=== PATIENT | female | born 1960 | race Caucasian/White ===

== ENCOUNTER 2023-11-11 10:42 | Emergency (ER) | payer OTHER, SELFPAY ==
[2023-11-11 10:49] VITALS: BP 135/79
[2023-11-11] MEDS: TORADOL 30 MG IM (11:00)
[2023-11-11 11:14] LABS: Urine Albumin 2+ (Neg - Trace); Urine Bilirubin Negative (Negative); Urine Character Very Cloudy (Clear); Urine Color Yellow; Urine Glucose Negative (Negative); Urine Ketone Negative (Negative); Urine Leukocyte 2+ (Negative); Urine Nitrite Positive (Negative); Urine Occult Blood 4+ (Negative); Urine Urobilinogen Negative (Neg - 1+)
[2023-11-11 11:28] LABS: Urine White Cell >100 /HPF (0-5)
[2023-11-11] MEDS: NSS 1000 IV (12:34)
[2023-11-11 12:44] LABS: % Basophils 0.2 % (0-2); % Eosinophils 0.3 % (0-6); % Immature Granulocytes 0.3 % (0-0.5); % Lymphocytes 12.9 % (20.5-51.1); % Neutrophils 78.3 % (42.2-75.2); Absolute Lymphocytes 1.4 10^3/uL (1.2-3.4); Absolute Monocytes 0.9 10^3/uL (0.1-0.6); Absolute Neutrophils 8.7 10^3/uL (1.4-6.5); Hematocrit 41.1 % (37.0-47.0); Hemoglobin 14.9 g/dL (12.0-16.0); Mean Corp Hgb Conc. 36.3 g/dL (33.0-37.0); Mean Corpuscular Hgb 34.9 pg (27.0-31.0); Mean Corpuscular Volume 96.3 fL (81.0-99.0); Mean Platelet Volume 9.4 fL (7.4-10.4); Nucleated Red Blood Cells % 0 %; Platelet Count 317 10^3/uL (130-400); Red Blood Cell Count 4.27 10^6/uL (4.20-5.40); Red Cell Dist. Width 11.9 % (11.5-14.5); White Blood Cell Count 11.1 10^3/uL (4.8-10.8)
[2023-11-11 13:01] LABS: ALT (SGPT) 20 U/L (0-35); AST (SGOT) 22 U/L (14-36); Albumin 4.2 g/dl (3.5-5.0); Alkaline Phosphatase 81 U/L (38-126); Blood Urea Nitrogen 11 mg/dl (7-17); Calcium 9.8 mg/dl (8.4-10.2); Carbon Dioxide 27 mmol/L (22-30); Chloride 99 mmol/L (98-107); Glucose 107 mg/dl (70-99); Potassium 4.2 mmol/L (3.5-5.1); Sodium 136 mmol/L (135-145); Total Bilirubin 0.9 mg/dl (0.2-1.3); Total Protein 7.2 g/dl (6.3-8.2); eGFR > 60.00
--- NOTE | 2023-11-11 13:16 | ED.GENMED ---
Addendum entered and electronically signed by Unique Means PA-C 11/14/23 07:37:
sensitive to cefazolin
no treatment change required.
Addendum entered and electronically signed by Unique Means PA-C 11/13/23 10:51:
e coli presumptive culture; on keflex; await sensitivies; ct showed findings asssociated with recently passed stone.
Original Note:
History of Present Illness
General
Chief Complaint: Flank Pain
Source: patient and family
Exam Limitations: none
Time Seen by Provider: 11/11/23 12:18
Nursing documentation reviewed up to this point in time: agreed with
Travel History
Have you had any contact with someone who has COVID-19?: No
Do you have any symptoms of coronavirus? Fever > 100 degrees, chills, cough, shortness of breath, sore throat, loss of taste or smell, muscle aches, or headache?: No
History of Present Illness
History of Present Illness:
63-year-old female with history of HTN is here for right flank plain she states started 2 days ago. She's had chills but no fever. She was nauseous and vomited once this a.m. during 07/15 pain episode. Denies abdominal pain. Pt given IM Toradol in
Triage and state pain is now 2/10. Saw PCP Dr. Chaudhari and sent here for evaluation.
Past History
Past History
ED Past Medical History: HTN
ED Past Surgical History: Orthopedic
Social History
Tobacco: Non-smoker
Alcohol: None
Personal: Single
Living: with family
Review of Systems
Review of Systems
Allergies reviewed?: Yes
All Other Systems: ROS reviewed and negative except as documented in HPI and ROS
Constitutional: Reports chills; Denies fever
Respiratory: Denies trouble breathing
Cardiac: Denies chest pain
ABD/GI: Reports nausea and vomiting; Denies abdominal pain or diarrhea
: Reports dysuria and flank pain; Denies frequency or difficulty voiding
Skin: Reports no symptoms
Neurological: Reports no symptoms
Phy Exam
Physical Exam
Physical Exam:
GENERAL: No acute distress. A&Ox3.
CONSTITUTIONAL: Afebrile.
EYES: PERRL, conjunctivae normal
ENMT: moist mucus membranes,
RESPIRATORY: Regular respirations, nonlabored, lungs clear.
CARDIOVASCULAR: Regular rate and rhythm, no murmurs, no rubs.
GI: Soft, nontender, normal BS. No flank tenderness at this time
MUSCULOSKELETAL: Moves with ease. Well perfused.
SKIN: Warm, dry, pink
PSYCH: Normal mood and affect. Well kept, interactive and appropriate
NEUROLOGIC: Awake, alert and oriented. No focal neurological deficits
Course
Orders/Labs/Results
Orders:
Orders
11/11/23 10:58
Ketorolac [Toradol] 30 mg .ROUTE .STK-MED ONE
11/11/23 11:00
Ketorolac [Toradol] 30 mg IM NOW STA
11/11/23 11:04
Urinalysis Reflex To Culture Urgent
Date Specimen was Collected: 11/11/23
Time Specimen was Collected: 10:55
Urine Microscopic Reflex Cult Urgent
Urine Culture Urgent
PARKER Source: U
Specimen Description:
Date Specimen was Collected: 11/11/23
Time Specimen was Collected: 10:55
11/11/23 12:19
IV Insert/Care/Rem.- Treatment PRN
0.9% Sodium Chloride 1000 ml [Nss] 1,000 ml IV BOLUS
11/11/23 12:25
CT Abd/pel Without Iv Or Oral Urgent
Comment:
Reason For Exam: R flank pain, hematuria
11/11/23 12:35
Complete Blood Count/With Diff Urgent
Comprehensive Metabolic Panel Urgent
11/11/23 15:27
CefTRIAXone [Rocephin] 1,000 mg IV NOW STA
Abnormal Lab Results
11/11/23 11/11/23
11:04 12:35
WBC 11.1 H 10^3/uL
(4.8-10.8)
MCH 34.9 H pg
(27.0-31.0)
Absolute Neuts (auto) 8.7 H 10^3/uL
(1.4-6.5)
Absolute Monos (auto) 0.9 H 10^3/uL
(0.1-0.6)
Neutrophils % 78.3 H %
(42.2-75.2)
Lymphocytes % 12.9 L %
(20.5-51.1)
Glucose 107 H mg/dl
(70-99)
Ur Occult Blood Reflex 4+ A
(Negative)
Urine Nitrite (Reflex) Positive A
(Negative)
Leukocyte Esterase Rfl 2+ A
(Negative)
Urine WBC (Reflex) >100 A /HPF
(0-5)
Urine Albumin (Reflex) 2+ A
(Neg - Trace)
11/11/23 12:35
11/11/23 12:35
Vital Signs
Initial and Last Documented VS:
Initial Vital Signs
Temp Pulse Resp BP Pulse Ox
98.5 F 90 20 135/79 98
11/11/23 10:49 11/11/23 10:49 11/11/23 10:49 11/11/23 10:49 11/11/23 10:49
Last Documented Vital Signs
Temp Pulse Resp BP Pulse Ox
98.5 F 82 17 122/70 97
11/11/23 10:49 11/11/23 15:03 11/11/23 15:03 11/11/23 15:03 11/11/23 15:03
MDM/Problems Addressed
Differential Diagnosis Includes:
UTI, Pyelonephritis, kidney stone
MDM/Problems Addressed:
63-year-old female with history of HTN is here for right flank plain she states started 2 days ago. She's had chills but no fever. She was nauseous and vomited once this a.m. during 07/15 pain episode. Denies abdominal pain. Pt given IM Toradol in
Triage and state pain is now 11/15. Saw PCP Dr. Chaudhari and sent here for evaluation.
Afebrile
11/11/2023 1320 PM
CBC, CMP with no clinically significant abnormality.
UA: 4+ occult blood, positive nitrites, positive leukocytes, greater than [address] WBCs
Patient is awaiting CT scan to rule out kidney stone/pyelonephritis
11/11/[address] abdomen pelvis without IV or p.o. contrast, radiology report read: IMPRESSION:
1.� Mild diffuse right hydroureter without urinary calculi identified. Findings could reflect recently passed stone.�
2. Normal appendix.
Patient has been pain-free since initial exam, most likely passed a stone.
UTI: infected. Rocephin IV given.
Rx for Keflex 500 mg BID x 10 days sent to her pharmacy
Explained results and all questions answered through language line [id number]
Daughter called and she was also updated.
*Critical Care Note
Total Time (30-74mins, 75-104mins- exclusive of procedures): Not Applicable
ED Attending Note
-
Portions of this chart may have been created with voice recognition software.� Occasional wrong word or��sound alike� substitutions may have occurred due to the inherent limitations of voice recognition software.
Discharge Plan
Departure
Patient Disposition: Home (Routine Discharge)
Date of Disposition: 11/11/23
Time of Disposition: 15:36
Patient with high blood pressure during this ER visit?: No
Condition: Good
Discharge Problem:
Kidney stone on right side, UTI (urinary tract infection)
Instructions: Kidney Stones (DC), Urinary Tract Infection, Adult (DC)
Prescriptions:
New
cephalexin 500 mg capsule
500 mg PO BID 10 Days Qty: 20 0RF
Referrals:
Loretta Chaudhari CRNP [Family Provider] - Call in 1-3 days for appt
Activity Restrictions/Additional Instructions:
As we discussed, you most likely recently passed a kidney stone.
You have a urinary tract infection. You received Rocephin IV here.
I sent a prescription to your pharmacy for Keflex 500 mg twice daily for 10 days.
Follow up with your doctor in 7-10 days.
Return here immediately for worsening pain, fever above 100.5 that is not relieved with Ibuprofen or Tylenol, vomiting or feeling sicker in any way.
Drink plenty of fluids.
Interventions
Interventions:
ED- Fall Risk Assessment Last Done: 11/11/23 15:21
VN-Ceotyt-Cdysmdlffn Assessment Last Done: 11/11/23 15:21
ED-Female Genitourinary Assessment Last Done: 11/11/23 15:21
Discharge Date and Time
Print Language: FILIPINO
[2023-11-11 15:03] VITALS: BP 122/70
[2023-11-11] MEDS: ROCEPHIN 1000 MG IV (15:57)
== END 2023-11-11 16:51 | disposition home or self-care (01) ==
LOC: EMR 10:42
PROVIDERS: Registered Nurse; EMERGENCY PHYSICIAN Emergency Medicine; FAMILY PHYSICIAN Nurse Practitioner Adult Health
DX: N20.0 Calculus of kidney (principal); N39.0 Urinary tract infection, site not specified; I10 Essential (primary) hypertension
CPT/HCPCS: 99284; 96374; 96372; 96361; 74176; 80053; 81003; 81015; 85025; 87086; 87088; 87186

== ENCOUNTER 2024-01-02 00:20 | Emergency (ER) | payer OTHER, SELFPAY ==
[2024-01-02 00:25] VITALS: BP 150/81
--- NOTE | 2024-01-02 00:33 | ED.GENMED ---
History of Present Illness
General
Chief Complaint: Urinary Symptoms
Time Seen by Provider: 01/02/24 00:33
Travel History
Have you had any contact with someone who has COVID-19?: No
Do you have any symptoms of coronavirus? Fever > 100 degrees, chills, cough, shortness of breath, sore throat, loss of taste or smell, muscle aches, or headache?: No
History of Present Illness
History of Present Illness:
HPI: About 1 hour ago, the patient had abrupt onset pain/dysuria. This is associated with hemorrhoids and diarrhea. She was seen here a month ago with similar symptoms and had a urine culture that grew E. coli and she was placed on Rocephin then
Keflex.
EXAM:
GENERAL: Patient appears uncomfortable
HEENT: Moist oral mucosa
CARDIOVASCULAR: No murmurs, normal heart rate, regular rhythm, No chest wall tenderness
PULMONARY: No respiratory distress, breath sounds are clear and equal
ABDOMEN: Soft with no peritoneal signs, no tenderness, there is no CVA tenderness
NEUROLOGIC: Excellent strength all extremities, no coordination deficits
PSYCHIATRIC: Appropriate mental status, normal insight and judgement
EXTREMITIES: Nontender, no edema, moves all extremities equally
SKIN: No rash, no lesions
TIME OF INITIAL ENCOUNTER: 12:30 AM: I initially evaluated patient
NUMBER AND COMPLEXITY OF PROBLEMS ADDRESSED AT THE ENCOUNTER
� Chronic conditions affecting care: High blood pressure, has had UTI in the past
� Acute Exacerbation and/or Progression of Chronic Illness: This is an acute problem but had a similar episode 5 weeks ago
� Differential Diagnosis includes: Hemorrhagic cystitis, UTI, pyelonephritis, ureteral stone
AMOUNT AND/OR COMPLEXITY OF DATA TO BE REVIEWED AND ANALYZED
� I performed an independent evaluation of and my interpretation is:
EKG:
CT: I personally viewed CT imaging and see no evidence for ureteral stone or other acute abnormality
X-rays:
Laboratory Studies: White count is elevated at 14, urinalysis is positive for nitrite along with 2+ leukocyte esterase, 4+ blood noted; renal function is normal
Other:
� Review of other/old records: Patient was positive for E. coli UTI which was sensitive to everything except ampicillin and Bactrim.
� Clinical information was obtained by an independent historian: I spoke with the patient today who is also translating without
� Prescriptions/Medications Considered but not given:
� Further testing considered but not performed:
RISK OF COMPLICATIONS AND/OR MORBIDITY OR MORTALITY OF PATIENT MANAGEMENT
� Social determinants of health affecting care: Lives at home
� Discussion with other providers:
� Escalation of care including admission/observation vs risk of discharge considered: Patient is given IV fluids and Toradol as she appeared uncomfortable upon arrival. I reviewed the old urine culture. I reassessed the patient
at 2:10 AM, the patient feels markedly improved. She is very well-appearing. Considered admission to the hospital as she now has hematuria and recurrent urinary tract infection. Daughter and patient feel it would be reasonable to try outpatient
management. She is given a dose of IV Rocephin prior to discharge.
Past History
Past History
ED Past Medical History: HTN
ED Past Surgical History: Orthopedic
Social History
Tobacco: Non-smoker
Alcohol: None
Personal: Single
Living: with family
Phy Exam
Physical Exam
Physical Exam:
See HPI
Course
Orders/Labs/Results
Orders:
Orders
01/02/24 00:43
CT Abd/pel Without Iv Or Oral Urgent
Comment:
Reason For Exam: abrupt pain w/ hematuria
0.9% Sodium Chloride 1000 ml [Nss] 1,000 ml IV BOLUS
Ketorolac [Toradol] 15 mg IV NOW STA
01/02/24 01:50
Complete Blood Count/With Diff Urgent
Comprehensive Metabolic Panel Urgent
Urinalysis Reflex To Culture Urgent
Date Specimen was Collected: 01/02/24
Time Specimen was Collected: :49
Urine Microscopic Reflex Cult Urgent
Urine Culture Urgent
PARKER Source: U
Specimen Description:
Date Specimen was Collected: 01/02/24
Time Specimen was Collected: :49
01/02/24 02:04
CefTRIAXone [Rocephin] 1,000 mg IV NOW STA
Abnormal Lab Results
01/02/24
01:50
WBC 14.0 H 10^3/uL
(4.8-10.8)
MCH 33.3 H pg
(27.0-31.0)
Abs Immat Gran (auto) 0.1 H 10^3/uL
(0-0.05)
Absolute Neuts (auto) 11.0 H 10^3/uL
(1.4-6.5)
Absolute Monos (auto) 0.9 H 10^3/uL
(0.1-0.6)
Neutrophils % 78.8 H %
(42.2-75.2)
Lymphocytes % 13.8 L %
(20.5-51.1)
BUN 18 H mg/dl
(7-17)
Glucose 108 H mg/dl
(70-99)
Urine Ketones Trace A
(Negative)
Ur Occult Blood Reflex 4+ A
(Negative)
Urine Nitrite (Reflex) Positive A
(Negative)
Leukocyte Esterase Rfl 2+ A
(Negative)
Urine RBC >100 A /HPF
(0-2)
Urine WBC (Reflex) 40-50 A /HPF
(0-5)
Urine Bacteria (Reflex) Many A
(Negative)
Urine Albumin (Reflex) 2+ A
(Neg - Trace)
01/02/24 01:50
01/02/24 01:50
Vital Signs
Initial and Last Documented VS:
Initial Vital Signs
Temp Pulse Resp BP Pulse Ox
98.0 F 96 24 150/81 99
01/02/24 00:25 01/02/24 00:25 01/02/24 00:25 01/02/24 00:25 01/02/24 00:25
Last Documented Vital Signs
Temp Pulse Resp BP Pulse Ox
98.0 F 96 24 150/81 99
01/02/24 00:25 01/02/24 00:25 01/02/24 00:25 01/02/24 00:25 01/02/24 00:25
*Critical Care Note
Total Time (30-74mins, 75-104mins- exclusive of procedures): Not Applicable
ED Attending Note
-
Portions of this chart may have been created with voice recognition software.� Occasional wrong word or��sound alike� substitutions may have occurred due to the inherent limitations of voice recognition software.
Discharge Plan
Departure
Patient Disposition: Home (Routine Discharge)
Date of Disposition: 01/02/24
Time of Disposition: 02:21
Patient with high blood pressure during this ER visit?: Yes
Discharge Problem:
Acute hemorrhagic cystitis
Instructions: Urinary Tract Infection, Adult (DC), Blood in the Urine (Hematuria), Adult (DC)
Prescriptions:
New
ciprofloxacin HCl [Cipro] 500 mg tablet
500 mg PO BID Qty: 14 0RF
No Action
cephalexin 500 mg capsule
500 mg PO BID 10 Days Qty: 20 0RF
Referrals:
Frank Sawant MD [Active] - Follow up in 2-3 days
Loretta Chaudhari CRNP [Family Provider] -
Activity Restrictions/Additional Instructions:
Since you have blood in your urine, I have given you the contact information for a local urologist to follow-up with. I reviewed your prior urine culture that grew E. coli (this came back several days after you were seen and tonight urine culture
will not be ready for another few days). We are giving a dose of IV Rocephin and then I sent a prescription to your pharmacy for Cipro. Your kidney function is normal. Please follow-up your primary care doctor as well. I recommend 3-4
[id number] ibuprofen (Motrin) every 8 hours with food for a few days. Return here if worse.
Interventions
Interventions:
*Risk Screen - Suicide Last Done: 01/02/24 00:25
*General Assessment Last Done: 01/02/24 01:50
*Neglect/Abuse Screening Last Done: 01/02/24 00:25
ED- Fall Risk Assessment Last Done: 01/02/24 01:50
*ED COVID-19 Vaccine History Last Done: 01/02/24 00:25
ED-Female Genitourinary Assessment Last Done: 01/02/24 01:50
Discharge Date and Time
Print Language: EMIRATI
[2024-01-02] MEDS: TORADOL 15 MG IV (01:47)
[2024-01-02] MEDS: NSS 1000 IV (01:47)
[2024-01-02 01:58] LABS: % Basophils 0.3 % (0-2); % Eosinophils 0.6 % (0-6); % Immature Granulocytes 0.4 % (0-0.5); % Lymphocytes 13.8 % (20.5-51.1); % Monocytes 6.1 % (1.7-9.3); % Neutrophils 78.8 % (42.2-75.2); Absolute Eosinophils 0.1 10^3/uL (0-0.7); Absolute Immature Granulocytes 0.1 10^3/uL (0-0.05); Absolute Lymphocytes 1.9 10^3/uL (1.2-3.4); Absolute Monocytes 0.9 10^3/uL (0.1-0.6); Hematocrit 40.3 % (37.0-47.0); Mean Corp Hgb Conc. 34.7 g/dL (33.0-37.0); Mean Corpuscular Hgb 33.3 pg (27.0-31.0); Mean Corpuscular Volume 95.7 fL (81.0-99.0); Mean Platelet Volume 9.4 fL (7.4-10.4); Nucleated Red Blood Cells % 0 %; Platelet Count 286 10^3/uL (130-400); Red Blood Cell Count 4.21 10^6/uL (4.20-5.40); Red Cell Dist. Width 12.6 % (11.5-14.5)
[2024-01-02 01:59] LABS: Urine Albumin 2+ (Neg - Trace); Urine Bilirubin Negative (Negative); Urine Character Slightly Cloudy (Clear); Urine Color Red; Urine Glucose Negative (Negative); Urine Ketone Trace (Negative); Urine Leukocyte 2+ (Negative); Urine Nitrite Positive (Negative); Urine Occult Blood 4+ (Negative); Urine Urobilinogen Negative (Neg - 1+)
[2024-01-02 02:10] LABS: Urine Red Blood Cell >100 /HPF (0-2)
[2024-01-02 02:11] LABS: ALT (SGPT) 22 U/L (0-35); AST (SGOT) 22 U/L (14-36); Albumin 4.5 g/dl (3.5-5.0); Alkaline Phosphatase 96 U/L (38-126); Blood Urea Nitrogen 18 mg/dl (7-17); Carbon Dioxide 27 mmol/L (22-30); Chloride 100 mmol/L (98-107); Glucose 108 mg/dl (70-99); Potassium 4.3 mmol/L (3.5-5.1); Sodium 138 mmol/L (135-145); Total Bilirubin 0.4 mg/dl (0.2-1.3); Total Protein 7.7 g/dl (6.3-8.2); Urine Bacteria Many (Negative); Urine White Cell 40-50 /HPF (0-5); eGFR > 60.00
[2024-01-02] MEDS: ROCEPHIN 1000 MG IV (02:49)
[2024-01-02 03:41] VITALS: BP 136/78
== END 2024-01-02 03:48 | disposition home or self-care (01) ==
LOC: EMR 00:20
PROVIDERS: EMERGENCY PHYSICIAN Emergency Medicine; FAMILY PHYSICIAN Nurse Practitioner Adult Health
DX: N30.01 Acute cystitis with hematuria (principal); I10 Essential (primary) hypertension
CPT/HCPCS: 99284; 96374; 96375; 74176; 80053; 81003; 81015; 85025; 87086; 87088; 87186